=== PATIENT | female | born 1975 | race Caucasian/White ===

== ENCOUNTER → 2022-08-27 | Outpatient (CLI) | payer BC ==
--- NOTE | 2022-08-27 17:27 | CT ---
EXAMINATION TYPE: CT hip RT wo con CT DLP: 497.4 mGycm, Automated exposure control for dose reduction was used. DATE OF EXAM: 08/27/2022 4:54 PM COMPARISON: None CLINICAL INDICATION:Female, 47 years old with history of M25.551 pain rt hip; Hx of right hip injury and Sx, pt c/o ongoing right hip pain. TECHNIQUE: Axial images were obtained of the right hip . Additional coronal and sagittal reformatted images and soft tissue and bone window were obtained for review. 3-D reconstruction was created on a separate workstation. Contrast used: None Oral contrast used: None FINDINGS: Fixation hardware of the right pelvis with multiple screws identified and appear intact. There is ruby nt space narrowing with near [id number] articulation of the superior acetabulum and the femoral hea d. There is large osteophytes involving the acetabulum and femoral head. There is no evidence of frac ture. Multilevel disc degeneration changes of the spine. The appendix normal. Few scattered clonic di verticula present. IMPRESSION: Severe, nearly end-stage, degeneration of the right hip.
== END | disposition home or self-care (01) ==
LOC: RADCTMAIN 16:35
PROVIDERS: ATTEND Orthopaedic Surgery
DX: M16.11 Unilateral primary osteoarthritis, right hip (principal); M25.551 Pain in right hip

== ENCOUNTER → 2022-10-25 | Outpatient (CLI) | payer BC ==
[2022-10-25 15:55] LABS: INR 0.9 (<1.2); Partial Thromboplastin Time 24.5 sec (22.0-30.0)
[2022-10-25 23:05] LABS: HCT 39.7 % (37.2-46.3); MCH 27.1 pg (27.0-32.0); MCHC 30.2 g/dL (32.0-37.0); MCV 89.6 fL (80.0-97.0); Mean Platelet Volume 11.1 fL (9.5-12.2); NRBC Per 100 WBC 0 /100 WBCS (0.0-0.0); Platelet Count 313 X 10*3/uL (140-440); RBC 4.43 X 10*6/uL (4.10-5.20); RDW 13.1 % (11.5-14.5); WBC 6.75 X 10*3/uL (4.50-10.00)
[2022-10-25 23:28] LABS: Appearance,Urine Clear (Clear); Bilirubin,Urine Negative (Negative); Blood,Urine Negative (Negative); Color,Urine Yellow (Yellow); Ketones,Urine Negative (Negative); Nitrite,Urine Negative (Negative); Specific Gravity,Urine 1.017 (1.001-1.030); Urobilinogen,Urine 0.2 (0.2,1.0)
[2022-10-25 23:55] LABS: Albumin 4.6 g/dL (3.8-4.9); Albumin/Globulin Ratio 2.07 (1.60-3.17); BUN/Creat Ratio 34.96 Ratio (12.00-20.00); Blood Urea Nitrogen 21.5 mg/dL (9.0-27.0); Carbon Dioxide 27.3 mmol/L (20.0-27.5); Globulin 2.2 g/dL (1.6-3.3); Non-African American GFR(CKD) 106.2 (60.0-200.0); Potassium 4.3 mmol/L (3.5-5.5); Total Bilirubin 0.5 mg/dL (0.30-1.20); Total Protein 6.8 g/dL (6.2-8.2)
== END | disposition home or self-care (01) ==
LOC: LABPAT 13:51
PROVIDERS: ATTEND Orthopaedic Surgery
DX: Z01.818 Encounter for other preprocedural examination (principal); R94.31 Abnormal electrocardiogram [ECG] [EKG]
CPT/HCPCS: 80053; 81003; 85027; 85610; 85730; 87070; 93005

== ENCOUNTER 2022-11-02 11:14 | Day surgery (SDC) | payer BC ==
[~2022-11-02 11:14] MED LIST: ACETAMINOPHEN TAB 500 MG TAB PO PRN; DEXAMETHASONE SOD PHOSPHATE 10 MG/ML 1 ML VIAL IV PRN; DOCUSATE 100 MG CAP PO PRN; FAMOTIDINE 20 MG/2 ML VIAL IVP PRN; KETOROLAC 15 MG/ML 1 ML VIAL IVP PRN; ONDANSETRON 4 MG/2 ML VIAL IVP PRN; ROPIVACAINE/EPI/CLONIDINE/KET 50 ML SYRINGE MISCELLANE PRN; TRANEXAMIC ACID IN NACL,ISO-OS 1,000 MG in SALINE 1 100ML.BAG IVPB PRN; oxyCODONE ER 10 MG TAB.ER.12H PO PRN
[2022-11-02] MEDS ORDERED: DEXAMETHASONE SOD PHOSPHATE 4 MG/ML 1 ML VIAL IV ONE (11:48)
[2022-11-02] MEDS ORDERED: SCOPOLAMINE 1 MG/72 HR PATCH TRANSDERM ONE (11:48)
[2022-11-02] MEDS ORDERED: MIDAZOLAM 2 MG/2 ML VIAL IV PRN (11:48)
[2022-11-02] MEDS: LACTATED RINGERS 1,000 ML IV SCH (11:58)
[2022-11-02] MEDS ORDERED: MELOXICAM 7.5 MG TAB PO ONE (12:07)
[2022-11-02] MEDS ORDERED: GABAPENTIN 300 MG CAP PO STA (12:07)
[2022-11-02] MEDS ORDERED: MIDAZOLAM 2 MG/2 ML VIAL IVP ONE (12:29)
[2022-11-02] MEDS ORDERED: fentaNYL (PF) 50 MCG/1 ML VIAL IVP ONE (12:30)
[2022-11-02] MEDS ORDERED: MAGNESIUM HYDROXIDE 2,400 MG/10 ML CUP PO PRN (13:19)
[2022-11-02] MEDS ORDERED: ONDANSETRON 4 MG/2 ML VIAL IVP PRN (13:19)
[2022-11-02] MEDS ORDERED: HYDROmorphone 1 MG/ML 1 ML SYRINGE IVP PRN (13:19)
[2022-11-02] MEDS ORDERED: NALOXONE 0.4 MG/ML 1 ML VIAL IV PRN (13:19)
[2022-11-02] MEDS ORDERED: HYDROmorphone 0.5 MG/0.5 ML SYRINGE IVP PRN ×2 (13:19)
[2022-11-02] MEDS ORDERED: HYDROcodone/APAP 7.5-325MG 1 EACH TAB PO PRN (13:22)
--- NOTE | 2022-11-02 13:25 | P.ANPRN ---
Procedure Note - Anesthesia - Nerve Block Performed Right Saravanan Single Time Out Performed: Yes (1228) Date of Procedure: 11/02/22 Procedure Start Time: 12:28 Procedure Stop Time: 12:36 Location of Patient: PreOp Indication: Acute Post-Operative Pain, Dx/Pain Location, Requested by Surgeon Specifically requested for management of pain by : Dudley Giraldo Sedation Type: Sedate with meaningful contact maintained Preparation: Sterile Prep Position: Supine Catheter: None Needle Types: Pajunk Needle Gauge: 21 (100 mm) Ultrasound used to visualize needle placement: Yes Ultrasound used to observe medication spread: Yes Injectate: 0.5% Ropivacaine (see comment for volume) (20 cc + 10 cc of Normal saline) Blood Aspirated: No Pain Paresthesia on Injection Noted: No Resistance on Injection: Normal Image Stored and Saved: Yes
[2022-11-02] MEDS ORDERED: SODIUM CHLORIDE 0.9% (PF) 10 ML VIAL ONE (13:39)
[2022-11-02] MEDS ORDERED: ROPIVACAINE 5 MG/ML 30 ML VIAL ONE (13:39)
[2022-11-02] MEDS ORDERED: LIDOCAINE 2% INJ 20 MG/ML (2 ML VIAL) ONE (13:39)
[2022-11-02] MEDS ORDERED: fentaNYL (PF) 50 MCG/ML 2 ML AMP ONE (13:39)
[2022-11-02] MEDS ORDERED: MIDAZOLAM 2 MG/2 ML VIAL ONE (13:39)
[2022-11-02] MEDS ORDERED: TRANEXAMIC ACID IN NACL,ISO-OS 1,000 MG/100 ML BAG ONE (13:39)
[2022-11-02] MEDS ORDERED: PROPOFOL 10 MG/ML 20 ML VIAL IV ONE (13:39)
[2022-11-02] MEDS ORDERED: ceFAZolin 1,000 MG in SODIUM CHLORIDE 0.9% 1,000 ML IRRIGATION ONE (13:43)
[2022-11-02] MEDS ORDERED: ROPIVACAINE 5 MG/ML 30 ML VIAL MISCELLANE ONE ×2 (13:47→14:59)
[2022-11-02] MEDS ORDERED: LACTATED RINGERS 1,000 ML IV ONE (14:48)
--- NOTE | 2022-11-02 15:06 | P.OP ---
Date of Procedure: 11/02/22 Preoperative Diagnosis: Severe posttraumatic arthritis right hip Postoperative Diagnosis: Severe posttraumatic arthritis right hip Procedure(s) Performed: Right total hip arthroplasty with a direct anterior approach Implants: [employer] Polarstem standard size 4 [employer] R3, 3 hole hemispherical acetabular shell, 52 mm [employer] Reflection 6.5 mm cancellus screw, 20 mm, 25 mm x 2 [employer] R3, XLPE 20 acetabular liner [employer] Oxinium femoral head 36 m, -3 All components were press-fit. The articulation is Oxinium on polyethylene. Anesthesia: spinal Surgeon: Dudley Giraldo Disability Counselor #1: Vivian Cardoza Estimated Blood Loss (ml): 350 Pathology: other (Femoral head) Condition: stable Disposition: PACU Indications for Procedure: After failure of conservative treatment we discussed the surgical and nonsurgical treatment options at length. Patient wishes to proceed with a total hip arthroplasty with a direct anterior approach. Complications specific to this procedure were discussed at length, including but not limited to infection, leg length discrepancy, dislocation, nerve injury, and fracture. Covid-19 was also discussed at length with the patient, and they are aware of the current policies and procedures. The patient was given the option of delaying surgery, but they elect to proceed knowing these risks. Patient is aware of all these complications and informed consent was obtained Operative Findings: The operative findings are consistent with severe posttraumatic arthritis of the right hip Description of Procedure: The patient was seen and evaluated in the preoperative area and the consent was reviewed. The operative site was marked with a skin marker. The patient verified the procedure and operative site. A SURESH block was placed by anesthesia in the preoperative area. The patient was then brought to the operating room and given preoperative antibiotics intravenously. 1 g of Tranexamic acid was also given intravenously. A spinal anesthetic was administered by the anesthesia department. The patient was then placed on the [place] table with the bony prominences well-padded. The hip area was then prepped with a ChloraPrep solution and draped in the usual sterile fashion. A universal timeout was then performed, which confirmed the patient's name, surgical site, ALLERGIES, and procedure being performed on the consent. Next the incision site was located at 1 cm distal and 4 cm lateral to the anterior superior iliac spine. The skin and subcutaneous tissues were sharply incised. Incision was carefully dissected down to the fascia overlying the tensor fascia paul muscle. This fascia was then incised in line with the muscle fibers. Care was taken to stay laterally in order to avoid injuring the lateral femoral cutaneous nerve. Next, using blunt finger dissection, the tensor fascia apul muscle was dissected off its investing fascia. The muscle was then carefully retracted laterally with a cobra retractor over the lateral neck of the femur. Next, the circumflex vessels were identified and cauterized using the Aquamantis device. The anterior hip capsule was then exposed. The capsule was then opened and an inverted T fashion. The retractors were then placed intracapsularly. The retractors were maintained intracapsular throughout the procedure. The proximal femur was then visualized. Fluoroscopic x-rays were then taken in order to evaluate the preoperative leg lengths. A small amount of traction was placed on the leg. The femoral neck was then osteotomized at the appropriate level above the lesser trochanter. A small wedge of bone was then removed from the remaining femoral head. Next, using a corkscrew the femoral head was removed from the acetabulum. On gross visual inspection, the femoral head had complete loss of articular cartilage and multiple periarticular osteophytes. The femoral head was then measured. Attention was then turned to the acetabulum. The acetabulum was exposed and any remaining labrum was excised. Sequential reaming of the acetabulum was performed using fluoroscopic guidance until there was a good bed of bleeding cancellus bone. When the appropriate size was reached, a trial was then placed. The position and fit of the trial was checked with fluoroscopy. The trial was then removed. Then, using fluoroscopic gu idance, the final implant was impacted at 20 of anteversion and 40 of abduction, and fully seated in the acetabulum. 3 screws were then placed in the acetabulum. Again fluoroscopy was used to check position of the screws. Next, the liner was then impacted, with a 20 elevated liner located in the anterior superior quadrant. Component locking was confirmed. Attention was then directed to the femur. With the aid of the [place] table, the femur was externally rotated to approximately 130, extended, and adducted under the opposite leg. A side hook was then placed under the proximal femur, and the side hook elevator was used to elevate the proximal femur while releasing the capsule. Retractors were then placed. A capsular release was performed, as well as a release of the conjoined tendon, which afforded excellent visualization of the proximal femur. Next, a box osteotome was used to lateralize the proximal femur. A hand tube bender was then used to locate the femoral canal. Sequential broaching was then performed with appropriate size which afforded excellent fixation in the proximal femur. A trial was then placed with appropriate head and neck, and the hip was gently reduced with the aid of the [place] table. Fluoroscopy was then used to check position of the components, as well as to evaluate the leg lengths and offset. The leg lengths and offset were measured as closely as possible to ensure stability of the hip. The hip was then gently dislocated and the trials were then removed. Final implants were then impacted and the hip was again reduced. Final fluoroscopic x -rays confirmed that the components were in anatomic position. The leg lengths and offset were measured and were found to coincide with the trial measurements. The hip was also taken through range of motion, and found to be stable. The hip was then copiously irrigated with antibiotic solution with pulsatile lavage. The hip was then irrigated with Irrisept solution. The soft tissues were then injected with a ropivacaine solution. A second dose of 1 g of Tranexamic acid was also given intravenously. The fascia was then closed with 2-0 strata fix suture. The subcutaneous tissue was closed with 3-0 Vicryl. The subcuticular tissue was closed with 3-0 strata fix suture. The skin was then closed with Exofin skin glue. After the glue and dried, and Optifoam silver impregnated dressing was applied. The patient was then transferred to the recovery room in stable condition. The assistant kitchen manager GERMAIN Mcleod was required due to the complexity of surgery, and the need for skilled surgical services coordinator for positioning, draping, exposure, retraction, and closure of the wound.
--- NOTE | 2022-11-02 15:22 | XR ---
EXAMINATION TYPE: XR Hip Limited RT, FL guidance operating room DATE OF EXAM: 11/02/2022 Comparison: None Clinical History: 47-year-old female Status post hip surgery, assess surgical alignment Findings: There has been previous internal fixation of the right acetabulum. Intraoperative fluoroscopy demonst rating placement of concurrent right hip arthroplasty. FLUOROSCOPY Fluoroscopy time of 58 seconds was used during right hip total arthroplasty. 5 image/s document/s th e procedure. Impression: Intraoperative fluoroscopy as above.
[2022-11-02] MEDS: HYDROmorphone 0.5 MG/0.5 ML SYRINGE IVP PRN ×2 (16:05→16:29)
--- NOTE | 2022-11-02 17:35 | XR ---
EXAMINATION TYPE: XR Hip Limited RT DATE OF EXAM: 11/02/2022 4:07 PM INDICATION: Patient age:Female; 47 years old; Reason for study: RIGHT ANTERIOR HIP; PHH. COMPARISON: Right hip fluoroscopic images of the same date. TECHNIQUE: The right hip was examined in the frontal projection. FINDINGS: Postsurgical changes from right total hip arthroplasty and right acetabular fixation. Hardw are appears intact with appropriate alignment. There is associated soft tissue gas and edema. No acut e fracture or dislocation. IMPRESSION: Postsurgical changes from right total hip arthroplasty and right acetabular fixation. Hardware appear s intact with appropriate alignment.
[2022-11-02] MEDS: SODIUM CHLORIDE 0.9% 1,000 ML IV SCH (17:41)
[2022-11-02] MEDS ORDERED: SENNOSIDES-DOCUSATE SODIUM 1 EACH TAB PO SCH (21:00)
[2022-11-02] MEDS: ASPIRIN 325 MG TAB PO SCH (22:07)
[2022-11-02] MEDS: HYDROcodone/APAP 7.5-325MG 1 EACH TAB PO PRN (22:24)
[2022-11-03] MEDS: HYDROcodone/APAP 7.5-325MG 1 EACH TAB PO PRN (04:42)
[2022-11-03] MEDS: SODIUM CHLORIDE 0.9% 1,000 ML IV SCH (05:20)
[2022-11-03 05:54] VITALS: BP 127/83; PULSE 69; RESP 16; TEMP 97.9
--- NOTE | 2022-11-03 07:41 | P.DS ---
Providers Expected date of discharge: 11/03/22 Attending physician: Dudley Giraldo Consults: 11/02/22 13:19 Consult Physician Routine Consulting Provider: Hi [place]et Consult Reason/Comments: medical management Do you want consulting provider notified?: Yes Primary care physician: Sakshi Barnes - Discharge Diagnosis(es) (1) Arthritis of right hip Current Visit: Yes Status: Acute (2) Status post total hip replacement, right Current Visit: Yes Status: Acute Hospital Course: This is a 47-year-old female with known history of degenerative arthritis of the right hip. The patient presents for evaluation. After discussion and consideration patient elects to proceed with total hip arthroplasty with direct anterior approach. The patient is seen preoperatively by primary care physician and cleared for surgery. Patient is admitted to [facility] on 11/02/2022 for total hip arthroplasty with direct anterior approach. The procedure is performed without complication or sequelae. The patient is doing well postoperatively. Labs and vital signs are stable on day of discharge. On day of discharge patient's hip incision is healing well. There is minimal erythema. There is no drainage noted at this time. There is minimal soft tissue swelling to the hip and thigh. Patient has full foot and ankle motion without difficulty or pain. Neurovascular status to the lower extremity is intact. Patient is discharged to home in good condition. Please see med rec for accurate list of home medications. Patient Condition at Discharge: Good Plan - Discharge Summary Discharge Rx Participant: Yes New Discharge Prescriptions: New Aspirin 325 mg PO BID #60 tab HYDROcodone/APAP 7.5-325MG [[place] 7.5-325] 1 - 2 tab PO Q6H PRN #32 tab PRN Reason: Pain Sennosides [Senokot] 2 tab PO DAILY PRN #60 tablet PRN Reason: Constipation No Action buPROPion XL [Wellbutrin XL] 300 mg PO DAILY Discharge Medication List buPROPion XL [Wellbutrin XL] 300 mg PO DAILY 10/28/22 [History] Aspirin 325 mg PO BID #60 tab 11/02/22 [Rx] HYDROcodone/APAP 7.5-325MG [[place] 7.5-325] 1 - 2 tab PO Q6H PRN #32 tab 11/02/22 [Rx] Sennosides [Senokot] 2 tab PO DAILY PRN #60 tablet 11/02/22 [Rx] Follow up Appointment(s)/Referral(s): Dudley Giraldo DO [Doctor of Osteopathic Medicine] - 2 Weeks Activity/Diet/Wound Care/Special Instructions: Weightbearing as tolerated with walker. Leave dressing intact. Dressing may be removed by home care nurse or by patient in 7 days. Then change dressing twice daily until follow up. May shower with initial dressing intact and after removal. If dressing become saturated, please remove. Please take aspirin 325mg twice daily for 30 days to prevent blood clots. Recommend use of compression stockings daily until follow up to help prevent swelling and blood clots. May remove at night before sleeping. Please follow-up with [facility] in 2 weeks and call with any questions or concerns, . Discharge Disposition: HOME WITH HOME HEALTH SERVICES
[2022-11-03] MEDS: ASPIRIN 325 MG TAB PO SCH (07:49)
[2022-11-03] MEDS ORDERED: buPROPion XL 300 MG TAB.ER.24H PO SCH (09:00)
[2022-11-03 10:49] LABS: Basophils # (A) 0.03 X 10*3/uL (0.00-0.10); Basophils % (A) 0.3 %; Eosinophils # (A) 0.03 X 10*3/uL (0.04-0.35); Eosinophils % (A) 0.3 %; HCT 30.5 % (37.2-46.3); HGB 9.5 g/dL (12.0-15.0); Immature Grans, Automated 0.3 %; Lymphocytes # (A) 1.27 X 10*3/uL (0.90-5.00); Lymphocytes % (A) 12.7 %; MCH 27.2 pg (27.0-32.0); MCHC 31.1 g/dL (32.0-37.0); MCV 87.4 fL (80.0-97.0); Monocytes # (A) 0.86 X 10*3/uL (0.20-1.00); Monocytes % (A) 8.6 %; NRBC Per 100 WBC 0 /100 WBCS (0.0-0.0); Neutrophils # (A) 7.81 X 10*3/uL (1.80-7.70); Neutrophils % (A) 77.8 %; Platelet Count 259 X 10*3/uL (140-440); RBC 3.49 X 10*6/uL (4.10-5.20); RDW 12.9 % (11.5-14.5); WBC 10.03 X 10*3/uL (4.50-10.00)
[2022-11-03] MEDS: LACTATED RINGERS 1,000 ML IV SCH (13:00)
--- NOTE | 2022-11-03 20:23 | P.CONS ---
History of Present Illness - Reason for Consult Consult date: 11/03/22 Medical management Requesting physician: Dudley Giraldo - Chief Complaint Right hip surgery - History of Present Illness This is a pleasant 47-year-old patient follows with Dr. Sakshi Barnes. Chronic stable medical conditions include osteoporosis, anxiety, nicotine dependence. Patient smokes about a pack a week. Patient underwent right total hip arthroplasty. Some pain present. No nausea vomiting. No chest pain no shortness of breath. Denies any cardiac history. Did ambulate today. Review of systems: GEN.: None EYES: None HEENT: None NECK: None RESPIRATORY: None CARDIOVASCULAR: None GASTROINTESTINAL: None GENITOURINARY: None MUSCULOSKELETAL: Joint pains LYMPHATICS: None HEMATOLOGICAL: None PSYCHIATRY: Some anxiety] NEUROLOGICAL: None Past medical history to include: Osteoarthritis, anxiety, nicotine dependence Social history: Smokes about a pack or a week. Alcohol occasionally. Desk job. Physical examination: VITAL SIGNS: 97.9, 69, 16, 127/83, 95% room air GENERAL: BMI 29.2, sitting up, awake, comfortable. EYES: Pupils equal. Conjunctiva normal. HEENT: External appearance of nose and ears normal, oral cavity grossly normal. NECK: JVD not raised; masses not palpable. HEART: First and second heart sounds are normal; no edema. LUNGS: Respiratory rate normal; clear to auscultation. ABDOMEN: Soft, nontender, liver spleen not palpable, no masses palpable. PSYCH: Alert and oriented x3; mood and affect normal. MUSCULOSKELETAL:No Clubbing/cyanosis;muscles-grossly intact. OA NEUROLOGICAL: Cranial nerves grossly intact; no facial asymmetry, power and sensation grossly intact. LYMPHATICS: No lymph nodes palpable in the axilla and neck INVESTIGATIONS, reviewed in the clinical context: White count 10.0 hemoglobin 9.5 platelets 259 10/25/2022: Hemoglobin 12 potassium 4.3 creatinine 0.6 Assessment and plan: -Right total hip arthroplasty. Aspirin for DVT prophylaxis. Pain control. -Primary osteoarthritis in multiple joints Pain medications as needed -Acute postprocedure blood loss anemia expected from surgery Ferrous sulfate -Chronic nicotine dependence, cigarette smoker Patient does use Wellbutrin for the same -Anxiety not otherwise specified Wellbutrin Care was discussed with the patient. Questions answered. Follow-up with Dr. Sakshi Barnes upon discharge. Thank you Dr. Giraldo Past Medical History Past Medical History: Osteoarthritis (OA) Additional Past Medical History / Comment(s): past hx. bowel obstruction History of Any Multi-Drug Resistant Organisms: None Reported Past Surgical History: Section, Hernia Repair, Hysterectomy, Orthopedic Surgery Additional Past Surgical History / Comment(s): C/S x2, right hip ORIF 1990, had some hardware removed later, one overy removed Past Anesthesia/Blood Transfusion Reactions: No Reported Reaction, Family History of Problems w/ Anesthesia Additional Past Anesthesia/Blood Transfusion Reaction / Comm: no problem w/blood transfusion, thinks mom has trouble w/anesthesia but unsure what Past Psychological History: Anxiety Smoking Status: Current some day smoker Past Alcohol Use History: Occasional Additional Past Alcohol Use History / Comment(s): smokes occasionally, not daily, currently trying to quit Past Drug Use History: None Reported - Past Family History Mother Family Medical History: No Reported History Medications and Allergies Home Medications Medication Instructions Recorded Confirmed Type buPROPion XL [Wellbutrin XL] 300 mg PO DAILY 10/28/22 11/02/22 History Aspirin 325 mg PO BID #60 tab 11/02/22 Rx HYDROcodone/APAP 7.5-325MG [[place] 1 - 2 tab PO Q6H PRN #32 tab 11/02/22 Rx 7.5-325] Sennosides [Senokot] 2 tab PO DAILY PRN #60 tablet 11/02/22 Rx Ferrous Sulfate [Feosol] 325 mg PO BID #60 tab 11/03/22 Rx Allergies Allergy/AdvReac Type Severity Reaction Status Date / Time No Known Allergies Allergy Verified 11/02/22 11:51 Physical Exam Vitals: Vital Signs Temp Pulse Resp BP Pulse Ox 11/03/22 07:49 16 11/03/22 05:53 97.9 F 69 16 127/83 95 11/03/22 02:04 98.4 F 93 17 124/77 95 11/02/22 19:27 97.7 F 64 16 126/83 97 11/02/22 17:47 96.9 F L 70 16 137/91 99 11/02/22 17:20 97.3 F L 58 L 16 140/85 98 11/02/22 17:05 55 L 16 133/82 96 11/02/22 16:35 56 L 16 136/81 97 11/02/22 16:20 59 L 16 143/82 97 11/02/22 16:05 54 L 16 146/81 98 11/02/22 15:50 55 L 16 134/75 94 L 11/02/22 15:35 72 16 119/73 94 L 11/02/22 15:26 74 16 115/72 95 11/02/22 12:50 70 16 152/94 95 11/02/22 11:46 97.0 F L 76 16 155/83 97 Intake and Output 11/02/22 11/03/22 11/03/22 22:59 06:59 14:59 Intake Total 200 840 240 Output Total 350 Balance -150 840 240 Intake: IV 200 Intake, IV Titration 840 Amount Sodium Chloride 0.9% 1, 840 000 ml @ 70 mls/hr IV . [id number] [facility] Rx#:[id number] Oral 240 Output: Estimated Blood Loss 350 Other: Voiding Method Toilet Toilet # Voids 3 # Bowel Movements 0 Weight 77.2 kg Results CBC & Chem 7: 11/03/22 04:39
== END 2022-11-03 13:25 | disposition home health service (06) ==
LOC: OR 11:14 → 4SSUR 15:25 → OR 11-03 13:25
PROVIDERS: ATTEND Orthopaedic Surgery
DX: M16.51 Unilateral post-traumatic osteoarthritis, right hip (principal); G89.18 Other acute postprocedural pain; M21.70 Unequal limb length (acquired), unspecified site; Z86.59 Personal history of other mental and behavioral disorders; Z79.899 Other long term (current) drug therapy
CPT/HCPCS: 86900; 86901; 86850; 73501; 27130; 64447; J2250; J1100; J0690 ×2; J2405; J2795; J1170; J3010; 76942; 85025; 88300